=== PATIENT | female | born 1985 | race Hispanic/Latino ===

== ENCOUNTER 2024-10-03 08:29 | Emergency (ER) | payer SELFPAY ==
[~2024-10-03] VITALS: Ht 162.6 cm; Wt 52.2 kg
[2024-10-03 08:32] VITALS: TEMP 99.6
[2024-10-03] MEDS: SODIUM CHLORIDE 0.9% 1000ML 1,000 ML IV ONE ×2 (09:11→11:15)
[2024-10-03] MEDS: ACETAMINOPHEN 325 MG TAB PO ONE (09:11)
[2024-10-03 09:12] LABS: BASOPHILS % 0.7 % (0.0-1.0); HEMATOCRIT 37.5 % (34.2-44.1); HEMOGLOBIN 12.6 g/dL (12.0-16.0); LYMPHOCYTES # (AUTO) 0.8 (1.0-3.2); LYMPHOCYTES % 18.8 % (18.0-39.1); MEAN CORPUSCULAR HEMOGLOBIN 29.7 pg (28-32); MEAN CORPUSCULAR HGB CONC 33.6 g/dL (31-35); MEAN CORPUSCULAR VOLUME 88.4 fL (81-99); MONOCYTES # (AUTO) 0.3 (0.2-0.8); MONOCYTES % 6.5 % (4.4-11.3); NEUTROPHILS # (AUTO) 3.3 (2.1-6.9); NEUTROPHILS % 73.8 % (38.7-80.0); PLATELET COUNT 210 x10e3/uL (140-360); RED BLOOD COUNT 4.24 x10e6/uL (3.6-5.1); RED CELL DISTRIBUTION WIDTH 12.5 % (11.7-14.4); WHITE BLOOD COUNT 4.46 x10e3/uL (4.8-10.8)
[2024-10-03 09:25] LABS: BILIRUBIN,URINE NEGATIVE (NEGATIVE); CLARITY,URINE TURBID (CLEAR); COLOR,URINE YELLOW (YELLOW); GLUCOSE, URINE NEGATIVE (NEGATIVE); KETONES,URINE TRACE (NEGATIVE); LEUKOCYTE ESTERASE ,URINE NEGATIVE (NEGATIVE); NITRITE,URINE NEGATIVE (NEGATIVE); PH,URINE 5.5 (5 - 7); PROTEIN,URINE DIPSTICK 1+ (NEGATIVE); URINE UROBILINOGEN 0.2 mg/dL (0.2 - 1)
[2024-10-03 09:26] LABS: ALANINE AMINOTRANSFERASE 24 IU/L (0-55); ALBUMIN 3.4 g/dL (3.5-5.0); ALBUMIN/GLOBULIN RATIO 0.9 (0.8-2.0); ALKALINE PHOSPHATASE 60 IU/L (40-150); ANION GAP 11.6 mmol/L (8-16); BACTERIA,URINE MODERATE /HPF; BILIRUBIN,TOTAL 0.2 mg/dL (0.2-1.2); BLOOD UREA NITROGEN 9 mg/dL (7-26); BUN/CREATININE RATIO 13 (6-25); CALCIUM 8.5 mg/dL (8.4-10.2); CARBON DIOXIDE 24 mmol/L (22-29); CHLORIDE 101 mmol/L (98-107); EPITHELIAL CELLS,URINE MANY /LPF; EST GLOMERULAR FILTRATION RATE 112 ML/MIN (>=60); GLUCOSE 97 mg/dL (74-118); LIPASE 50 U/L (8-78); POTASSIUM 3.6 mmol/L (3.5-5.1); SODIUM 133 mmol/L (136-145); TOTAL PROTEIN 7.3 g/dL (6.5-8.1)
[2024-10-03 09:57] VITALS: PULSE 71; RESP 16; O2SAT 99
[2024-10-03] MEDS: KETOROLAC TROMETHAMINE 30 MG/ML VIAL IV STA (11:15)
[2024-10-03] MEDS ORDERED: ONDANSETRON ODT4 MG PO (13:52)
== END 2024-10-03 14:17 | disposition home or self-care (01) ==
LOC: EDBD 08:35 → ER 08:35
DX: R10.32 Left lower quadrant pain (principal); R11.2 Nausea with vomiting, unspecified; R91.8 Other nonspecific abnormal finding of lung field
CPT/HCPCS: 36415; 74176; 76856; 80053; 81001; 83690; 84702; 85025; 87086; 99284; J1885; J7030